=== PATIENT | male | born 1980 ===

== ENCOUNTER 2018-03-03 12:48 | Emergency (ER) | payer BC, OTHER ==
[2018-03-03 13:04] VITALS: TEMP 99.3
[2018-03-03] MEDS ORDERED: Amoxicillin-Clav 875-125 mg Tab PO STA (13:21)
[2018-03-03] MEDS ORDERED: Rabies Immune Globulin 150 INTLU/ML VIAL IM ONE (13:23)
--- NOTE | 2018-03-03 14:00 | ED PDOC ---
Arrival/HPI - General Chief Complaint: Bite Time Seen by Provider: 03/03/18 13:21 Historian: Patient - History of Present Illness Narrative History of Present Illness (Text): 03/03/18 13:51 37yr old male presents today with cat bite to the right 2nd finger and hand last night. pt states he and his partner took in stray cats and sustained bite to the hand. pt denies fever/chills. pt c/o pain and swelling to right hand. states t etanus is up to date. pt denies numbness, weakness, tingling in the extremity. no medications have been taken for pain at home. no other complaints. Past Medical History - Provider Review Nursing Documentation Reviewed: Yes - Travel History Have you recently traveled outside [place] w/in the past 3 mons?: No - Tetanus Immunization Tetanus Immunization: Up to Date - Psychiatric Hx Substance Use: Yes Family/Social History - Physician Review Nursing Documentation Reviewed: Yes Family/Social History: Unknown Family HX Smoking Status: Never Smoked Hx Alcohol Use: No Hx Substance Use: Yes Allergies/Home Meds Allergies/Adverse Reactions: Allergies No Known Allergies Allergy (Verified 03/03/18 13:00) Review of Systems - Review of Systems Constitutional: absent: Fatigue, Fevers Respiratory: absent: SOB, Cough Cardiovascular: absent: Chest Pain, Palpitations Gastrointestinal: absent: Abdominal Pain, Nausea, Vomiting Musculoskeletal: Arthralgias Skin: Other (cat bite) Neurological: absent: Headache, Dizziness Psychiatric: absent: Anxiety, Depression Physical Exam Vital Signs Reviewed: Yes Vital Signs Temp Pulse Resp BP Pulse Ox 03/03/18 13:01 99.3 F 84 16 126/79 98 Temperature: Afebrile Blood Pressure: Normal Pulse: Regular Respiratory Rate: Normal Appearance: Positive for: Well-Appearing, Non-Toxic, Comfortable Pain Distress: None Mental Status: Positive for: Alert and Oriented X 3 - Systems Exam Head: Present: Atraumatic Respiratory/Chest: Present: Clear to Auscultation Cardiovascular: Present: Regular Rate and Rhythm Upper Extremity: Present: Normal ROM, NORMAL PULSES, Tenderness (right hand; there is a small area of erythema over the 1st MCP; full rom of hand. there are 2 small abrasions noted over dorsal aspect of the 2nd finger at the proximal phalanx; full rom of finger. sensation and distal pulses intact; cap refill <2. ), Swelling, Erythema, Neurovascularly Intact, Capillary Refill < 2s Neurological: Present: GCS=15, Speech Normal Skin: Present: Warm, Dry, Normal Color Psychiatric: Present: Alert, Oriented x 3 Medical Decision Making ED Course and Treatment: 03/03/18 13:48 Patient is nontoxic well-appearing in no distress. Vital signs are stable. Tetanus up to date Wound irrigated well with copious amounts of high-pressure irrigation using normal saline Augmentin 875 mg p.o. rabines immunoglobulin and rabines vaccine given pt given 0.2ml of immunoglobulin placed in the wound in the 2nd proximal phalanx of right hand and the rest IM given by RN. Patient was advised to keep the wound clean and dry, apply bacitracin twice daily, take antibiotics as prescribed and return immediately if symptoms worsen persist or if new symptoms develop. patient was advised to return on day 3, 7, and 14 for continuation of rabies vaccine. pt was advised to f/u with hand specialist. Patient verbalizes understanding of discharge instructions and need for immediate followup. all aspects of this case were discussed the attending of record. Impression: cat bite, puncture wounds Motrin one tablet every 6 hours as needed for pain Augmentin: Twice daily x10 days Keep the wound clean and dry, apply bacitracin twice daily return on day 3-March 06, day 7-March 10, day 14-March 17 for continuation of rabies vaccine. Return immediately if symptoms worsen persist or if new symptoms develop: High fevers, increasing pain, increasing redness, swelling or if any other concerning symptoms develop. - Medication Orders Current Medication Orders: Discontinued Medications Amoxicillin/Clavulanate Potassium (Augmentin 875 Mg-125 Mg Tab) 1 tab PO STAT STA; Protocol Stop: 03/03/18 13:22 Rabies Immune Globulin (Imogam) 1,260 intlu IM .ONCE ONE Stop: 03/03/18 13:24 Rabies Vaccine Human Diploid Cell (Rabavert Vaccine Inj) 2.5 units IM .ONCE ONE Stop: 03/03/18 13:23 Disposition/Present on Arrival - Present on Arrival Any Indicators Present on Arrival: No History of DVT/PE: No History of Uncontrolled Diabetes: No Urinary Catheter: No History of Decub. Ulcer: No History Surgical Site Infection Following: None - Disposition Have Diagnosis and Disposition been Completed?: Yes Diagnosis: Cat bite Disposition: HOME/ ROUTINE Disposition Time: 13:48 Patient Plan: Discharge Condition: GOOD Discharge Instructions (ExitCare): Animal Bites (DC) Additional Instructions: Motrin one tablet every 6 hours as needed for pain Augmentin: Twice daily x10 days Keep the wound clean and dry, apply bacitracin twice daily return on day 3-March 06, day 7-March 10, day 14-March 17 for continuation of rabies vaccine. Return immediately if symptoms worsen persist or if new symptoms develop: High fevers, increasing pain, increasing redness, swelling or if any other concerning symptoms develop. Prescriptions: Amoxicillin/Clavulanate [Augmentin 875 MG-125 MG] 1 tab PO BID #20 tab Bacitracin OINT 1 applic TP BID #1 tube Ibuprofen [Motrin] 600 mg PO Q6H PRN #20 tab PRN Reason: pain/fever reduction Referrals: Ana Aguilar MD [Medical Doctor] - Follow up with primary [facility] [Outside] - Follow up with primary Shae Fowler MD [Staff Provider] - Follow up with primary Forms: [employer] ([place]), WORK NOTE
[2018-03-03 15:02] VITALS: BP 122/79; PULSE 88; RESP 18; O2SAT 99
== END 2018-03-03 15:00 | disposition home or self-care (01) ==
LOC: ED 12:48
DX: S61.230A Puncture wound without foreign body of right index finger without damage to nail, initial encounter (principal); W55.01XA Bitten by cat, initial encounter; Y92.9 Unspecified place or not applicable; Z23 Encounter for immunization

== ENCOUNTER 2018-03-10 20:27 | Emergency (ER) | payer BC, OTHER ==
[2018-03-10 20:47] VITALS: BMI 24.0
[2018-03-10 20:48] VITALS: BP 121/70; PULSE 68; RESP 18; TEMP 98.1; O2SAT 99
--- NOTE | 2018-03-10 21:17 | ED PDOC ---
Arrival/HPI - General Chief Complaint: Rabies Vaccine Series Time Seen by Provider: 03/10/18 20:51 Historian: Patient - History of Present Illness Narrative History of Present Illness (Text): 03/10/18 20:50 37 year old male who presents to the Emergency department for rabies series vaccine. Patient was bitten by stray cat on the right second digit approximately 1.5 weeks ago. Patient was is here for the 3rd rabies vaccine. Patient denies any numbness/tingling in the extremity, redness, pain, swelling to finger or any other complaints. Symptom Onset: Gradual Symptom Course: Unchanged Activities at Onset: Light Context: Exertion Past Medical History - Provider Review Nursing Documentation Reviewed: Yes - Infectious Disease Hx of Infectious Diseases: None - Tetanus Immunization Tetanus Immunization: Up to Date - Psychiatric Hx Substance Use: Yes - Anesthesia Hx Anesthesia: No Hx Anesthesia Reactions: No Hx Malignant Hyperthermia: No Family/Social History - Physician Review Nursing Documentation Reviewed: Yes Family/Social History: Unknown Family HX Smoking Status: Never Smoked Hx Alcohol Use: No Hx Substance Use: Yes Allergies/Home Meds Allergies/Adverse Reactions: Allergies No Known Allergies Allergy (Verified 03/03/18 13:00) Review of Systems - Physician Review All systems were reviewed & negative as marked: Yes - Review of Systems Constitutional: Normal. absent: Fevers Eyes: Normal ENT: Normal Respiratory: Normal. absent: SOB, Cough Cardiovascular: Normal. absent: Chest Pain Gastrointestinal: Normal. absent: Abdominal Pain, Diarrhea, Nausea, Vomiting Genitourinary Male: Normal. absent: Dysuria, Frequency, Hematuria, Urinary Output Changes Musculoskeletal: Normal. absent: Back Pain, Neck Pain Skin: Normal. absent: Rash Neurological: Normal. absent: Headache, Dizziness Endocrine: Normal Hemo/Lymphatic: Normal Psychiatric: Normal Physical Exam Vital Signs Reviewed: Yes Vital Signs Temp Pulse Resp BP Pulse Ox 03/10/18 20:48 98.1 F 68 18 121/70 99 Temperature: Afebrile Blood Pressure: Normal Pulse: Regular Respiratory Rate: Normal Appearance: Positive for: Well-Appearing, Non-Toxic, Comfortable Pain Distress: None Mental Status: Positive for: Alert and Oriented X 3 - Systems Exam Upper Extremity: Present: Normal ROM, NORMAL PULSES, Neurovascularly Intact, Capillary Refill < 2s. No: Cyanosis, Edema, Tenderness, Swelling, Erythema, Temperature Abnormalties, Deformity Neurological: Present: GCS=15, CN II-XII Intact, Speech Normal, Motor Func Grossly Intact, Normal Sensory Function Skin: Present: Warm, Dry, Normal Color. No: Rashes Psychiatric: Present: Alert, Oriented x 3, Normal Insight, Normal Concentration Medical Decision Making ED Course and Treatment: Plan : - rabies vaccine Patient advised to return to the ER on day 14 - ThursdayMar 17, for his last rabies vaccination. Patient verbalize understanding of information and instructions. 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 - Scribe Statement The provider has reviewed the documentation as recorded by the Nedibbrandt Salazar Provider Scribe Attestation: All medical record entries made by the Scribe were at my direction and personally dictated by me. I have reviewed the chart and agree that the record accurately reflects my personal performance of the history, physical exam, medical decision making, and the department course for this patient. I have also personally directed, reviewed, and agree with the discharge instructions and disposition. Disposition/Present on Arrival - Present on Arrival Any Indicators Present on Arrival: No History of DVT/PE: No History of Uncontrolled Diabetes: No Urinary Catheter: No History of Decub. Ulcer: No History Surgical Site Infection Following: None - Disposition Have Diagnosis and Disposition been Completed?: Yes Diagnosis: Need for rabies vaccination Disposition: HOME/ ROUTINE Disposition Time: 21:15 Patient Plan: Discharge Condition: STABLE Discharge Instructions (ExitCare): Rabies Vaccine Additional Instructions: Thank you for letting us take care of you today. You were evaluated for h/o cat bite, need 3rd rabies vaccination. The emergency medical care you received today was directed at your acute symptoms. Return to the Emergency Department on ThursdayMar 17 for your day 14 rabies vaccination (your last rabies shot). Thank you for allowing the [facility] team to be part of your care today. Forms: [employer] ([place]), WORK NOTE
== END 2018-03-10 21:25 | disposition home or self-care (01) ==
LOC: ED 20:27
DX: Z23 Encounter for immunization (principal)

== ENCOUNTER 2018-03-17 05:30 | Emergency (ER) | payer OTHER ==
[2018-03-17 05:31] VITALS: BMI 24.0
[2018-03-17 05:41] VITALS: TEMP 97.9
--- NOTE | 2018-03-17 05:53 | ED PDOC ---
Arrival/HPI - General Chief Complaint: Rabies Vaccine Series Time Seen by Provider: 03/17/18 05:53 Historian: Patient - History of Present Illness Narrative History of Present Illness (Text): 03/17/18 05:53 37 year old male, with no significant past medical history, presents to the emergency department for rabies series vaccine. Patient on the right second digit was bitten by a cat 2 weeks ago. Patient is here for the 4th and final rabies vaccine. Patient denies any fever, chills, chest pain, shortness of breath, nausea, vomiting, diarrhea, urinary symptoms, back pain, neck pain, rash, headache, dizziness, or any other complaints. Time/Duration: Other (2 weeks) Symptom Onset: Sudden Symptom Course: Unchanged Activities at Onset: Light Context: Street Past Medical History - Provider Review Nursing Documentation Reviewed: Yes - Infectious Disease Hx of Infectious Diseases: None - Tetanus Immunization Tetanus Immunization: Up to Date - Psychiatric Hx Substance Use: Yes - Anesthesia Hx Anesthesia: No Hx Anesthesia Reactions: No Hx Malignant Hyperthermia: No Family/Social History - Physician Review Nursing Documentation Reviewed: Yes Family/Social History: No Known Family HX Smoking Status: Never Smoked Hx Alcohol Use: No Hx Substance Use: Yes Allergies/Home Meds Allergies/Adverse Reactions: Allergies No Known Allergies Allergy (Verified 03/03/18 13:00) Review of Systems - Physician Review All systems were reviewed & negative as marked: Yes - Review of Systems Constitutional: absent: Fevers, Other (Chills) Respiratory: absent: SOB Cardiovascular: absent: Chest Pain Gastrointestinal: absent: Diarrhea, Nausea, Vomiting Genitourinary Male: absent: Dysuria, Frequency, Hematuria Musculoskeletal: absent: Back Pain, Neck Pain Skin: absent: Rash Neurological: absent: Headache, Dizziness Physical Exam Vital Signs Reviewed: Yes Vital Signs Temp Pulse Resp BP Pulse Ox 03/17/18 05:39 97.9 F 79 18 143/76 99 Temperature: Afebrile Blood Pressure: Normal Pulse: Regular Respiratory Rate: Normal Appearance: Positive for: Well-Appearing, Non-Toxic, Comfortable Pain Distress: None Mental Status: Positive for: Alert and Oriented X 3 - Systems Exam Head: Present: Atraumatic, Normocephalic Pupils: Present: PERRL Extroacular Muscles: Present: EOMI Conjunctiva: Present: Normal Mouth: Present: Moist Mucous Membranes Neck: Present: Normal Range of Motion Respiratory/Chest: Present: Clear to Auscultation, Good Air Exchange. No: Respiratory Distress, Accessory Muscle Use Cardiovascular: Present: Regular Rate and Rhythm, Normal S1, S2. No: Murmurs Abdomen: No: Tenderness, Distention, Peritoneal Signs Back: Present: Normal Inspection Upper Extremity: Present: Normal Inspection. No: Cyanosis, Edema Lower Extremity: Present: Normal Inspection. No: Edema Neurological: Present: GCS=15, CN II-XII Intact, Speech Normal Skin: Present: Warm, Dry, Normal Color. No: Rashes Psychiatric: Present: Alert, Oriented x 3, Normal Insight, Normal Concentration Medical Decision Making ED Course and Treatment: 03/17/18 05:53 Impression: 37 year old male presents for 4th rabies series vaccine. Patient was bite by a cat on the right second digit 2 weeks ago. Plan: -- Rabies Vaccine -- Reassess and disposition Prior Visits: Notes and results from previous visits were reviewed. Patient was last seen in the emergency department on 03/10/18 presents for the 3rd rabies vaccine. Patient was discharged. Progress Notes: 03/17/18 06:10 Patient finished rabies series vaccine. Patient in agreement with plan to be discharged home. Patient is stable for discharge. Patient was instructed to follow up with physician or return if symptoms worsen or new concerning symptoms arise. - Scribe Statement The provider has reviewed the documentation as recorded by the Kirstin Garcia Provider Scribe Attestation: All medical record entries made by the Scribe were at my direction and personally dictated by me. I have reviewed the chart and agree that the record accurately reflects my personal performance of the history, physical exam, medical decision making, and the department course for this patient. I have also personally directed, reviewed, and agree with the discharge instructions and disposition. Disposition/Present on Arrival - Present on Arrival Any Indicators Present on Arrival: No History of DVT/PE: No History of Uncontrolled Diabetes: No Urinary Catheter: No History of Decub. Ulcer: No History Surgical Site Infection Following: None - Disposition Have Diagnosis and Disposition been Completed?: Yes Diagnosis: Need for rabies vaccination Disposition: HOME/ ROUTINE Disposition Time: 06:07 Patient Plan: Discharge Condition: GOOD Additional Instructions: Follow up with your doctor as needed Forms: [employer] ([employer])
[2018-03-17 06:13] VITALS: BP 136/78; PULSE 64; RESP 17; O2SAT 100
== END 2018-03-17 06:12 | disposition home or self-care (01) ==
LOC: ED 05:30
DX: Z23 Encounter for immunization (principal)